=== PATIENT | female | born 1945 | race Caucasian/White ===

== ENCOUNTER 2018-06-22 11:25 | Emergency (ER) | payer OTHER ==
[~2018-06-22] VITALS: Ht 154.9 cm; Wt 75.3 kg
[2018-06-22 11:25] VITALS: BP_SYST 165
[2018-06-22 14:16] LABS: BASOPHILS # (AUTO) 0.1 K/uL (0.0-0.2); BASOPHILS % (AUTO) 0.7 % (0.0-2.0); EOSINOPHILS # (AUTO) 0.1 K/uL (0.0-0.4); HEMATOCRIT 41.3 % (36-48); LYMPHOCYTES # (AUTO) 3.1 K/uL (1.0-5.5); LYMPHOCYTES % (AUTO) 25.6 % (20.5-51.5); MEAN CORPUSCULAR HEMOGLOBIN 31 pg (27-31); MEAN CORPUSCULAR HGB CONC 34 % (32-36); MEAN CORPUSCULAR VOLUME 91 fL (79.0-98.0); MONOCYTES # (AUTO) 0.7 K/uL (0.0-1.0); MONOCYTES % (AUTO) 5.7 % (1.7-9.3); PLATELET COUNT (AUTO) 365 K/uL (130-430); RED BLOOD CELL COUNT(AUTO) 4.56 MIL/uL (4.2-6.2); RED CELL DISTRIBUTION WIDTH 13.4 % (9.0-15.0)
[2018-06-22 14:23] LABS: BILIRUBIN,URINE NEGATIVE (NEGATIVE); BLOOD, URINE 1+ (NEGATIVE); CLARITY/URINE SL HAZY (CLEAR); COLOR,URINE YELLOW (YELLOW); GLUCOSE,URINE NEGATIVE (NEGATIVE); KETONES,URINE NEGATIVE (NEGATIVE); LEUKOCYTE ESTERASE ,URINE NEGATIVE (NEGATIVE); NITRITE, URINE NEGATIVE (NEGATIVE); PH,URINE 7.5 (5.0-8.0); PROTEIN URINE NEGATIVE (NEGATIVE); UROBILINOGEN,URINE 0.2 (0.2-1.0)
[2018-06-22 14:28] LABS: BACTERIA,URINE RARE /HPF (None Seen); WBC,URINE 0-3 /HPF (0-3)
[2018-06-22 14:35] LABS: CALCIUM 9.4 mg/dL (8.4-11.0); CREATININE 0.74 mg/dL (0.55-1.30); INR 0.9 (0.8-1.2); POTASSIUM 4.2 mmol/L (3.5-5.1)
[2018-06-22 14:40] LABS: ALBUMIN 4.1 g/dL (3.4-4.8); TOTAL BILIRUBIN 0.7 mg/dL (0.0-1.0)
[2018-06-22] MEDS ORDERED: cloNIDine HCL 0.1 MG TABLET PO ONE (15:30)
[2018-06-22 16:43] VITALS: BP_SYST 152
== END 2018-06-22 16:43 | disposition home or self-care (01) ==
LOC: SED 11:25
DX: I10 Essential (primary) hypertension (principal); R31.9 Hematuria, unspecified; M19.90 Unspecified osteoarthritis, unspecified site; M79.7 Fibromyalgia; Z90.49 Acquired absence of other specified parts of digestive tract; Z90.710 Acquired absence of both cervix and uterus; Z88.5 Allergy status to narcotic agent; Z88.8 Allergy status to other drugs, medicaments and biological substances
CPT/HCPCS: 36415; 71045; 80053; 81000-TC; 83880; 84484; 85025; 85610-TC; 85730-TC; 93005; 99284